=== PATIENT | male | born 1975 ===

== ENCOUNTER 2019-08-19 16:08 | Emergency (ER) | payer OTHER ==
--- NOTE | 2019-08-19 17:11 | NUR ---
PT CALLED X3 TO TRIAGE, NIL, DATA SECURITY COORDINATOR NOTIFIED.
== END 2019-08-19 17:23 | disposition left against medical advice (07) ==
LOC: ER 16:09
DX: R10.9 Unspecified abdominal pain (principal); Z53.21 Procedure and treatment not carried out due to patient leaving prior to being seen by health care provider